=== PATIENT | male | born 1995 | race Caucasian/White ===

== ENCOUNTER 2024-07-13 15:41 | Emergency (ER) | payer BC ==
[2024-07-13 15:59] LABS: BILIRUBIN, URINE NEGATIVE (negative); BLOOD/HGB, URINE NEGATIVE (Negative); KETONE, URINE NEGATIVE (Negative); LEUK ESTERASE, URINE NEGATIVE (negative); NITRITE, URINE NEGATIVE (negative)
[2024-07-13 16:00] LABS: BASOPHILS 0.6 % (0-2); EOSINOPHILS 1.8 % (0-6); HEMATOCRIT 47.9 % (35.0-50.0); HEMOGLOBIN 16.5 g/dL (12.0-18.0); LYMPHOCYTES 29.4 % (24-44); MCH 28.9 (27-36); MCHC 34.5 g/dl (30-36); MCV 83.9 fl (81-99); MONOCYTES 10.6 % (0-12); NEUTROPHILS 57.6 % (39-80); PLATELET COUNT 292 K/uL (140-440); RBC 5.71 M/ul (4.3-5.7); RDW 14.1 (10.5-15.0)
[2024-07-13 16:13] LABS: ALBUMIN 4.4 g/dL (3.4-5.0); ALBUMIN/GLOBULIN RATIO 1.13 (1.1-2.4); ANION GAP 14.7 (7-21); BILIRUBIN, TOTAL 0.6 ng/dL (0.2-1.0); BUN/CREATININE RATIO 6.86 (6.0-28.6); CALCIUM 9.3 mg/dL (8.5-10.1); CREATININE, SERUM 1.02 mg/dL (0.70-1.30); POTASSIUM 3.7 mmol/L (3.5-5.1); PROTEIN, TOTAL 8.3 g/dL (6.4-8.2)
[2024-07-13] MEDS ORDERED: PANTOPRAZOLE SODIUM 40 MG/10 ML VIAL IV ONE (16:15)
[2024-07-13] MEDS ORDERED: ondansetron HCL 4 MG/2 ML VIAL IV ONE (16:15)
[2024-07-13] MEDS ORDERED: KETOROLAC TROMETHAMINE 30 MG/ML VIAL IV ONE (16:15)
[2024-07-13] MEDS ORDERED: SODIUM CHLORIDE 0.9% 1,000 ML IV PRN (16:15)
[2024-07-13 16:22] LABS: INR 1.05 (0.80-1.30); PARTIAL THROMBOPLASTIN TIME 29.9 Sec (22.9-41.3)
[2024-07-13 16:33] LABS: MAGNESIUM 2.2 mg/dL (1.8-2.4)
[2024-07-13 17:16] LABS: INFLUENZA B NAA NEGATIVE (NEGATIVE); RESPIRATORY SYNCYTIAL VIR NAA NEGATIVE (NEGATIVE)
[2024-07-13] MEDS ORDERED: DICYCLOMINE HCL20 MG PO (18:38)
[2024-07-13 18:49] VITALS: BP 142/96
--- NOTE | 2024-07-14 20:20 | EKG ---
[facility] [address] [facility] [place] [id number] Signed Normal sinus rhythm with sinus arrhythmia Normal ECG No previous ECGs available Confirmed by Lilian Ferrara MD ([id number]) on 07/14/2024 8:20:34 PM Electronically Signed By: LILIAN FERRARA MD 07/14/24 2020 PATIENT NAME: ESTEFANIA CAMP Electrocardiogram DATE OF : [birth year] PHYSICIAN: LILIAN FERRARA MD REPORT #: [id number] REPORT IS CONFIDENTIAL AND NOT TO BE RELEASED WITHOUT AUTHORIZATION
== END 2024-07-13 18:49 | disposition home or self-care (01) ==
LOC: ED 15:41
PROVIDERS: Emergency Medicine
DX: R10.30 Lower abdominal pain, unspecified (principal); R07.9 Chest pain, unspecified; Z88.0 Allergy status to penicillin; Z11.52 Encounter for screening for COVID-19
CPT/HCPCS: 36415; 71045; 74176; 80053; 81001; 81003; 83690; 83735; 83880; 84484; 85025; 85610; 85730; 87502; 93005; 93010; 96374; 96375; 99284-25; J1885; J2405; J2470; J7030; U0002